=== PATIENT | female | born 1930 | race Caucasian/White ===

== ENCOUNTER 2019-02-27 20:20 | Emergency (ER) | payer OTHER, BC ==
[~2019-02-27] VITALS: Ht 157.5 cm; Wt 96.6 kg
[2019-02-27 20:20] VITALS: BP_SYST 126
--- NOTE | 2019-02-27 20:21 | NUR ---
Pt BIBA / from facility, with family present, to ED C/O having UTI and abnormal urine labs for 1 day. No other complaints and or injuries noted. VSS no s/s of acute distress. Resting on gurney with rails up
--- NOTE | 2019-02-27 21:47 | NUR ---
Patient to ER bed 6 to gown for evaluation. Side rails up. Report given to Helder BAUTISTA.
--- NOTE | 2019-02-27 21:53 | NUR ---
Dr. Chatterjee bedside for Pt eval
[2019-02-27 22:11] LABS: BILIRUBIN,URINE NEGATIVE (NEGATIVE); BLOOD, URINE NEGATIVE (NEGATIVE); CLARITY/URINE CLEAR (CLEAR); COLOR,URINE YELLOW (YELLOW); GLUCOSE,URINE NEGATIVE (NEGATIVE); KETONES,URINE NEGATIVE (NEGATIVE); LEUKOCYTE ESTERASE ,URINE TRACE (NEGATIVE); NITRITE, URINE POSITIVE (NEGATIVE); PH,URINE 5.5 (5.0-8.0); PROTEIN URINE NEGATIVE (NEGATIVE); UROBILINOGEN,URINE 0.2 (0.2-1.0)
--- NOTE | 2019-02-27 22:12 | NUR ---
Lab at bedside for blood draw, well tolerated
[2019-02-27 22:19] LABS: RBC,URINE 0-3 /HPF (0-3)
[2019-02-27 22:20] LABS: BACTERIA,URINE MANY /HPF (None Seen)
[2019-02-27 22:28] LABS: BASOPHILS # (AUTO) 0.1 K/uL (0.0-0.2); BASOPHILS % (AUTO) 1.2 % (0.0-2.0); EOSINOPHILS # (AUTO) 0.5 K/uL (0.0-0.4); EOSINOPHILS % (AUTO) 5.3 % (0.0-4.0); HEMOGLOBIN 12.7 g/dL (12.0-16.0); LYMPHOCYTES # (AUTO) 3.1 K/uL (1.0-5.5); MEAN CORPUSCULAR HEMOGLOBIN 30 pg (27-31); MEAN CORPUSCULAR HGB CONC 33 % (32-36); MEAN CORPUSCULAR VOLUME 91 fL (79.0-98.0); MONOCYTES # (AUTO) 0.6 K/uL (0.0-1.0); MONOCYTES % (AUTO) 7.2 % (1.7-9.3); NEUTROPHILS # (AUTO) 4.6 K/uL (1.8-7.7); NEUTROPHILS % (AUTO) 51.3 % (40.0-70.0); PLATELET COUNT (AUTO) 290 K/uL (130-430); RED BLOOD CELL COUNT(AUTO) 4.28 MIL/uL (4.2-6.2); RED CELL DISTRIBUTION WIDTH 17.2 % (9.0-15.0); WHITE BLOOD COUNT (AUTO) 8.9 K/uL (4.8-10.8)
[2019-02-27 22:34] LABS: ANION GAP 9 (5-15); CALCIUM 9.3 mg/dL (8.4-11.0); CHLORIDE 107 mmol/L (98-107); CREATININE 1.18 mg/dL (0.55-1.30); GLUCOSE 92 mg/dL (70-99); POTASSIUM 4.2 mmol/L (3.5-5.1); SODIUM SERUM 141 mmol/L (136-145); UREA NITROGEN, BLOOD 30 mg/dL (8-21)
[2019-02-27 22:40] LABS: ALANINE AMINOTRANSFERASE 22 U/L (12-78); ALBUMIN 3.4 g/dL (3.4-4.8); ASPARTATE AMINOTRANSFERASE 31 U/L (10-37); TOTAL BILIRUBIN 0.3 mg/dL (0.0-1.0)
--- NOTE | 2019-02-27 23:10 | NUR ---
VSS no s/s of acute distress. Resting on gurney with rails up
[2019-02-27] MEDS ORDERED: cefTRIAXone 1 GM VIAL IM ONE (23:15)
--- NOTE | 2019-02-28 00:05 | NUR ---
Family bedside while Pt's VSS no s/s of acute distress. Resting on gurney with rails up
[2019-02-28 01:20] VITALS: BP_SYST 126
--- NOTE | 2019-02-28 01:20 | NUR ---
Patient given written and verbal discharge instructions and verbalizes understanding. ER MD discussed with patient the results and treatment provided. Patient in stable condition. ID arm band removed. Rx of Keflex given. Patient educated on pain management and to follow up with PMD. Pain Scale 0/10 Opportunity for questions provided and answered. Medication side effect fact sheet provided.
== END 2019-02-28 01:20 | disposition home or self-care (01) ==
LOC: SED 20:20
DX: N39.0 Urinary tract infection, site not specified (principal)
CPT/HCPCS: 36415; 80053; 81000; 85025; 87086; 96372; 99283; J0696

== ENCOUNTER 2019-03-05 14:13 | Emergency (ER) | payer OTHER, BC ==
[~2019-03-05] VITALS: Ht 167.6 cm; Wt 136.1 kg
[2019-03-05 14:13] VITALS: BP_SYST 121
--- NOTE | 2019-03-05 14:13 | NUR ---
BROUGHT IN BY [facility], PLACED IN BED #4 AND TRIAGED. REPORT GIVEN TO YANI
--- NOTE | 2019-03-05 14:30 | NUR ---
ER at bedside examining patient.
--- NOTE | 2019-03-05 14:40 | NUR ---
Patient presented to ER with c/o alteration in mentation. Patient a resident of [facility] via wheelchair with daughter. Patient was observed pulling other residents out of bed, wandering in other areas of facility, and attempting to get out of wheelchair, and removed IV from hand. Patient confused, ski8n pink, respirations equal bilat, no visable abrasions.
[2019-03-05 15:28] LABS: BASOPHILS # (AUTO) 0.1 K/uL (0.0-0.2); BASOPHILS % (AUTO) 1.1 % (0.0-2.0); EOSINOPHILS # (AUTO) 0.3 K/uL (0.0-0.4); EOSINOPHILS % (AUTO) 4.3 % (0.0-4.0); HEMATOCRIT 39.7 % (36-48); HEMOGLOBIN 12.6 g/dL (12.0-16.0); LYMPHOCYTES # (AUTO) 2.3 K/uL (1.0-5.5); LYMPHOCYTES % (AUTO) 29.8 % (20.5-51.5); MEAN CORPUSCULAR HEMOGLOBIN 29 pg (27-31); MEAN CORPUSCULAR HGB CONC 32 % (32-36); MEAN CORPUSCULAR VOLUME 92 fL (79.0-98.0); MONOCYTES # (AUTO) 0.6 K/uL (0.0-1.0); MONOCYTES % (AUTO) 7.7 % (1.7-9.3); NEUTROPHILS # (AUTO) 4.5 K/uL (1.8-7.7); NEUTROPHILS % (AUTO) 57.1 % (40.0-70.0); PLATELET COUNT (AUTO) 293 K/uL (130-430); RED BLOOD CELL COUNT(AUTO) 4.31 MIL/uL (4.2-6.2); RED CELL DISTRIBUTION WIDTH 17.4 % (9.0-15.0); WHITE BLOOD COUNT (AUTO) 7.9 K/uL (4.8-10.8)
[2019-03-05 15:34] LABS: ANION GAP 5 (5-15); CALCIUM 9.6 mg/dL (8.4-11.0); CHLORIDE 109 mmol/L (98-107); CREATININE 1.04 mg/dL (0.55-1.30); GLUCOSE 104 mg/dL (70-99); POTASSIUM 4.8 mmol/L (3.5-5.1); SODIUM SERUM 140 mmol/L (136-145); UREA NITROGEN, BLOOD 31 mg/dL (8-21)
[2019-03-05 15:37] LABS: PROTHROMBIN TIME 10.5 SECS (9.5-12.5)
[2019-03-05 15:49] LABS: ALANINE AMINOTRANSFERASE 12 U/L (12-78); ALBUMIN 3.6 g/dL (3.4-4.8); ASPARTATE AMINOTRANSFERASE 28 U/L (10-37); TOTAL BILIRUBIN 0.2 mg/dL (0.0-1.0)
[2019-03-05] MEDS ORDERED: ALPRAZolam 0.25 MG TABLET PO ONE ×2 (17:00→19:15)
--- NOTE | 2019-03-05 17:35 | NUR ---
Patient assisted to Bathroom via wheel chair
[2019-03-05] MEDS ORDERED: ONDANSETRON 4 MG ODT TAB PO ONE (18:15)
[2019-03-05] MEDS ORDERED: HYDROcodone/ACETAMIN 10-325 MG TAB PO ONE (18:15)
[2019-03-05] MEDS ORDERED: IBUPROFEN 800 MG TABLET PO ONE (18:15)
--- NOTE | 2019-03-05 18:15 | NUR ---
Patient awake , family at bedside. Patient talking with family, asking to leave.
--- NOTE | 2019-03-05 19:42 | NUR ---
Patient resting comfortably in bed.
[2019-03-05 21:15] VITALS: BP_SYST 121
--- NOTE | 2019-03-05 21:15 | NUR ---
Patient's grandaughter given written and verbal discharge instructions and verbalizes understanding. ER discussed with patient's grandaughter the results and treatment provided. Patient in stable condition. ID arm band removed. No Rx given. Patient's grandaughter educated on pain management and to follow up with PMD. Pain Scale 0/10. Opportunity for questions provided and answered.
--- NOTE | 2019-03-05 21:18 | NUR ---
Awaiting transport to have patient transported back to facility.
--- NOTE | 2019-03-05 23:06 | NUR ---
Spoke to Rajni at [facility] to give report on the patient.
--- NOTE | 2019-03-05 23:34 | NUR ---
[facility] at bedside to transport patient back to facility.
== END 2019-03-05 23:34 ==
LOC: SED 14:13
DX: R45.1 Restlessness and agitation (principal); F03.90 Unspecified dementia, unspecified severity, without behavioral disturbance, psychotic disturbance, mood disturbance, and anxiety
CPT/HCPCS: 36415; 71045; 80053; 81002; 83605; 84484; 85025; 85610; 85730; 93005; 99285; Q0162

== ENCOUNTER 2019-03-10 14:30 | Inpatient (IN) | payer OTHER, BC ==
[~2019-03-10] VITALS: Ht 160 cm; Wt 93.0 kg
[2019-03-10] MEDS ORDERED: CEPH-568 PO (17:26)
[2019-03-10] MEDS ORDERED: CYAN250014 PO (17:26)
[2019-03-10] MEDS ORDERED: DONE10TA44 PO (17:26)
[2019-03-10] MEDS ORDERED: MOM PO (17:26)
[2019-03-10] MEDS ORDERED: MEMA10TA PO (17:26)
[2019-03-10] MEDS ORDERED: ACET-2165 PO (17:26)
[2019-03-10] MEDS ORDERED: QUET50TA PO (17:26)
[2019-03-10] MEDS ORDERED: PROP10DR2 RIGHT EYE (17:26)
[2019-03-10] MEDS ORDERED: BISA10SU61 RC (17:26)
[2019-03-10] MEDS ORDERED: LORA-258 PO ×2 (17:26)
[2019-03-10] MEDS ORDERED: LISI10TA5 PO (17:26)
[2019-03-10] MEDS ORDERED: MELA3TAB PO (17:26)
[2019-03-10] MEDS ORDERED: DEXT30DR6 EACH EYE (17:26)
[2019-03-10] MEDS ORDERED: PROP10TA10 PO (17:26)
[2019-03-10 17:54] VITALS: BP_SYST 112
[2019-03-10 18:19] LABS: BASOPHILS # (AUTO) 0.1 K/uL (0.0-0.2); EOSINOPHILS # (AUTO) 0.4 K/uL (0.0-0.4); HEMATOCRIT 40.5 % (36-48); LYMPHOCYTES # (AUTO) 2.6 K/uL (1.0-5.5); LYMPHOCYTES % (AUTO) 35.2 % (20.5-51.5); MEAN CORPUSCULAR HEMOGLOBIN 29 pg (27-31); MEAN CORPUSCULAR HGB CONC 32 % (32-36); MEAN CORPUSCULAR VOLUME 92 fL (79.0-98.0); MONOCYTES # (AUTO) 0.6 K/uL (0.0-1.0); MONOCYTES % (AUTO) 8.2 % (1.7-9.3); NEUTROPHILS # (AUTO) 3.7 K/uL (1.8-7.7); NEUTROPHILS % (AUTO) 50.6 % (40.0-70.0); PLATELET COUNT (AUTO) 304 K/uL (130-430); RED BLOOD CELL COUNT(AUTO) 4.42 MIL/uL (4.2-6.2); RED CELL DISTRIBUTION WIDTH 17.7 % (9.0-15.0); WHITE BLOOD COUNT (AUTO) 7.3 K/uL (4.8-10.8)
[2019-03-10 18:20] LABS: ANION GAP 3 (5-15); CALCIUM 9.7 mg/dL (8.4-11.0); CHLORIDE 108 mmol/L (98-107); CREATININE 1.13 mg/dL (0.55-1.30); GLUCOSE 103 mg/dL (70-99); POTASSIUM 4.4 mmol/L (3.5-5.1); SODIUM SERUM 138 mmol/L (136-145); UREA NITROGEN, BLOOD 27 mg/dL (8-21)
[2019-03-10 18:25] LABS: ALANINE AMINOTRANSFERASE 12 U/L (12-78); ALBUMIN 3.7 g/dL (3.4-4.8); ASPARTATE AMINOTRANSFERASE 29 U/L (10-37); TOTAL BILIRUBIN 0.3 mg/dL (0.0-1.0)
[2019-03-10] MEDS ORDERED: ACETAMINOPHEN 325 MG TABLET PO SCH (19:45)
[2019-03-10] MEDS ORDERED: LISINOPRIL 10 MG TABLET (PRINIVIL) PO ONE (19:45)
[2019-03-10] MEDS ORDERED: BISACODYL 10 MG/SUPPOSITORY RC SCH (19:45)
[2019-03-10 20:10] VITALS: BP_SYST 133
[2019-03-10] MEDS: MEMANTINE HCL 5 MG TABLET PO SCH (20:59)
[2019-03-10] MEDS: QUEtiapine FUMARATE 25 MG TABLET PO SCH (20:59)
[2019-03-10] MEDS: DONEPEZIL HCL 5 MG TABLET (ARICEPT) PO SCH (21:00)
[2019-03-10] MEDS: LORazepam 1 MG TABLET PO SCH (21:00)
[2019-03-10] MEDS: PROPRANOLOL HCL 10 MG TABLET (INDERAL) PO SCH (21:01)
[2019-03-10] MEDS ORDERED: cefTRIAXone 1 GM IVPB PREMIX 50 ML IV ONE (21:12)
[2019-03-10 21:50] LABS: BILIRUBIN,URINE NEGATIVE (NEGATIVE); BLOOD, URINE NEGATIVE (NEGATIVE); CLARITY/URINE CLEAR (CLEAR); COLOR,URINE YELLOW (YELLOW); GLUCOSE,URINE NEGATIVE (NEGATIVE); KETONES,URINE NEGATIVE (NEGATIVE); LEUKOCYTE ESTERASE ,URINE TRACE (NEGATIVE); NITRITE, URINE NEGATIVE (NEGATIVE); PROTEIN URINE NEGATIVE (NEGATIVE); UROBILINOGEN,URINE 0.2 (0.2-1.0)
[2019-03-10] MEDS ORDERED: DIPHENHYDRAMINE INJ 50 MG/ML VIAL ONE (21:59)
[2019-03-10] MEDS ORDERED: DIPHENHYDRAMINE INJ 50 MG/ML VIAL IVP ONE (22:00)
[2019-03-10 22:27] LABS: BACTERIA,URINE FEW /HPF (None Seen); MUCUS,URINE None Seen /LPF (None Seen); RBC,URINE 0-3 /HPF (0-3)
[2019-03-10] MEDS: cefTRIAXone 1 GM IVPB PREMIX 50 ML IV SCH (22:40)
[2019-03-10] MEDS ORDERED: ALPRAZolam 0.25 MG TABLET PO ONE (23:00)
[2019-03-10] MEDS ORDERED: ALPRAZolam 0.25 MG TABLET ONE (23:10)
[2019-03-11 01:04] VITALS: BP_SYST 121
[2019-03-11] MEDS: LISINOPRIL 10 MG TABLET (PRINIVIL) PO SCH ×2 (08:57→20:35)
[2019-03-11] MEDS: PROPRANOLOL HCL 10 MG TABLET (INDERAL) PO SCH ×3 (09:02→20:34)
[2019-03-11] MEDS: MEMANTINE HCL 5 MG TABLET PO SCH ×2 (09:02→20:33)
[2019-03-11] MEDS: LORazepam 1 MG TABLET PO SCH ×2 (09:03→20:35)
[2019-03-11 10:18] VITALS: BP_SYST 122
[2019-03-11 11:20] VITALS: BP_SYST 133
[2019-03-11 15:09] VITALS: BP_SYST 117
[2019-03-11] MEDS ORDERED: LORazepam 2 MG/ML VIAL IVP ONE (17:45)
[2019-03-11] MEDS ORDERED: LORazepam 2 MG/ML VIAL ONE (17:51)
[2019-03-11] MEDS ORDERED: ALPRAZolam 0.25 MG TABLET PO ONE ×2 (18:45→23:15)
[2019-03-11 19:15] VITALS: BP_SYST 116
[2019-03-11] MEDS: QUEtiapine FUMARATE 25 MG TABLET PO SCH (20:33)
[2019-03-11] MEDS: DONEPEZIL HCL 5 MG TABLET (ARICEPT) PO SCH (20:34)
[2019-03-11] MEDS: cefTRIAXone 1 GM IVPB PREMIX 50 ML IV SCH (20:35)
[2019-03-11] MEDS ORDERED: ALPRAZolam 0.25 MG TABLET ONE ×2 (23:17→23:28)
[2019-03-11] MEDS ORDERED: DIPHENHYDRAMINE INJ 50 MG/ML VIAL IVP ONE (23:30)
[2019-03-11] MEDS ORDERED: DIPHENHYDRAMINE INJ 50 MG/ML VIAL ONE (23:43)
[2019-03-12] VITALS (7 sets, daily range): BP systolic 103–148
[2019-03-12] MEDS: MEMANTINE HCL 5 MG TABLET PO SCH ×2 (08:10→20:27)
[2019-03-12] MEDS: PROPRANOLOL HCL 10 MG TABLET (INDERAL) PO SCH ×3 (08:11→20:27)
[2019-03-12] MEDS: LISINOPRIL 10 MG TABLET (PRINIVIL) PO SCH ×2 (08:11→20:28)
[2019-03-12] MEDS: LORazepam 1 MG TABLET PO SCH ×2 (08:12→20:25)
[2019-03-12] MEDS ORDERED: HALOPERIDOL LACTATE 5 MG/ML VIAL IM PRN (11:00)
[2019-03-12] MEDS: cefTRIAXone 1 GM IVPB PREMIX 50 ML IV SCH (20:24)
[2019-03-12] MEDS: DONEPEZIL HCL 5 MG TABLET (ARICEPT) PO SCH (20:25)
[2019-03-12] MEDS: QUEtiapine FUMARATE 25 MG TABLET PO SCH (20:28)
[2019-03-13 08:30] VITALS: BP_SYST 128
[2019-03-13] MEDS: MEMANTINE HCL 5 MG TABLET PO SCH (09:27)
[2019-03-13] MEDS: PROPRANOLOL HCL 10 MG TABLET (INDERAL) PO SCH (09:28)
[2019-03-13] MEDS: LORazepam 1 MG TABLET PO SCH (09:28)
[2019-03-13] MEDS: LISINOPRIL 10 MG TABLET (PRINIVIL) PO SCH (09:29)
[2019-03-13 10:51] VITALS: BP_SYST 114
== END 2019-03-13 15:22 | DRG 690 ==
LOC: UNDOADMIN 15:02 → SMU 15:02
PROVIDERS: ADMIT Internal Medicine Hospice and Palliative Medicine; ATTEND Internal Medicine Hospice and Palliative Medicine
DX: N39.0 Urinary tract infection, site not specified (principal); F03.91 Unspecified dementia, unspecified severity, with behavioral disturbance; I10 Essential (primary) hypertension; Z91.14 Patient's other noncompliance with medication regimen; Z91.19 Patient's noncompliance with other medical treatment and regimen
CPT/HCPCS: 36415; 80053; 81000-TC; 85025; 87081; 87086; J0696; J1200; J1630; J2060; J7050

== ENCOUNTER 2019-05-11 09:41 | Inpatient (IN) | payer OTHER, BC ==
[~2019-05-11] VITALS: Ht 172.7 cm; Wt 85.7 kg
[~2019-05-11 09:41] MED LIST: ACET-2165 PO; BISA10SU61 RC; CYAN250014 PO; DEXT30DR6 EACH EYE; DONE10TA44 PO; LISI10TA5 PO; LORA-258 PO; MELA3TAB64 PO; MEMA10TA PO; MOM PO; PROP10DR2 RIGHT EYE; PROP10TA10 PO; QUET50TA PO
--- NOTE | 2019-05-11 09:46 | NUR ---
Arrived via BLS ambulance with compliant of increased confusion and agititation. SNF statff was concerned as the patient has responded in this manner to UTI in the past. Patient to ER bed 4 to gown for evaluation. Side rails up. Report given to Marek BAUTISTA.
[2019-05-11 09:48] VITALS: BP_SYST 122
--- NOTE | 2019-05-11 09:50 | NUR ---
Patient BIBA from [place] c/o increased confusion and agitation. Received report via phone from Kira BAUTISTA. Per report, patient has history of HTN, dementia, UTI, and psychosis. Patient is A/O x 2. Respirations even and unlabored, skin warm/pink/dry, no signs or symptoms of acute distress noted.
--- NOTE | 2019-05-11 09:59 | NUR ---
ER Dr. Vallejo at bedside examining patient.
[2019-05-11] MEDS ORDERED: NA P133E41 RC (10:01)
--- NOTE | 2019-05-11 10:01 | NUR ---
Medication reconciliation completed based upon medication record provided by SNF.
--- NOTE | 2019-05-11 10:11 | NUR ---
Radiology at bedside.
[2019-05-11 11:01] LABS: BASOPHILS # (AUTO) 0.1 K/uL (0.0-0.2); EOSINOPHILS # (AUTO) 0.3 K/uL (0.0-0.4); EOSINOPHILS % (AUTO) 3.5 % (0.0-4.0); HEMATOCRIT 37.7 % (36-48); HEMOGLOBIN 12.3 g/dL (12.0-16.0); LYMPHOCYTES % (AUTO) 25.8 % (20.5-51.5); MEAN CORPUSCULAR HEMOGLOBIN 31 pg (27-31); MEAN CORPUSCULAR HGB CONC 33 % (32-36); MEAN CORPUSCULAR VOLUME 93 fL (79.0-98.0); MONOCYTES # (AUTO) 0.6 K/uL (0.0-1.0); MONOCYTES % (AUTO) 8.2 % (1.7-9.3); NEUTROPHILS # (AUTO) 4.7 K/uL (1.8-7.7); NEUTROPHILS % (AUTO) 61.5 % (40.0-70.0); PLATELET COUNT (AUTO) 290 K/uL (130-430); RED BLOOD CELL COUNT(AUTO) 4.06 MIL/uL (4.2-6.2); RED CELL DISTRIBUTION WIDTH 16.5 % (9.0-15.0); WHITE BLOOD COUNT (AUTO) 7.6 K/uL (4.8-10.8)
[2019-05-11 11:20] LABS: BILIRUBIN,URINE NEGATIVE (NEGATIVE); CLARITY/URINE HAZY (CLEAR); COLOR,URINE YELLOW (YELLOW); GLUCOSE,URINE NEGATIVE (NEGATIVE); KETONES,URINE NEGATIVE (NEGATIVE); LEUKOCYTE ESTERASE ,URINE 3+ (NEGATIVE); NITRITE, URINE NEGATIVE (NEGATIVE); PH,URINE 5.5 (5.0-8.0); PROTEIN URINE NEGATIVE (NEGATIVE); UROBILINOGEN,URINE 0.2 (0.2-1.0)
[2019-05-11 11:22] LABS: BLOOD, URINE TRACE (NEGATIVE)
[2019-05-11 11:39] LABS: BACTERIA,URINE MODERATE /HPF (None Seen); RBC,URINE 0-3 /HPF (0-3); WBC,URINE 20-50 /HPF (0-3)
[2019-05-11 11:40] LABS: MUCUS,URINE 1+ /LPF (None Seen)
[2019-05-11 11:40] LABS: ALANINE AMINOTRANSFERASE 25 U/L (12-78); ALBUMIN 3.3 g/dL (3.4-4.8); ANION GAP 2 (5-15); ASPARTATE AMINOTRANSFERASE 37 U/L (10-37); CHLORIDE 107 mmol/L (98-107); CREATININE 1.07 mg/dL (0.55-1.30); GLUCOSE 122 mg/dL (70-99); SODIUM SERUM 137 mmol/L (136-145); TOTAL BILIRUBIN 0.2 mg/dL (0.0-1.0); UREA NITROGEN, BLOOD 28 mg/dL (8-21)
[2019-05-11 11:43] LABS: POTASSIUM 4.4 mmol/L (3.5-5.1)
[2019-05-11 11:55] LABS: CALCIUM 9.4 mg/dL (8.4-11.0)
--- NOTE | 2019-05-11 12:13 | NUR ---
Patient's daughter Mariela at bedside. Updated daughter on patient status and plan of care. Education provided and all questions answered clearly.
[2019-05-11] MEDS ORDERED: cefTRIAXone 1 GM in D5W 50 ML IV ONE (12:15)
--- NOTE | 2019-05-11 13:40 | NUR ---
Patient will be admitted to care of Dr Galvan. Admitted to Medsurg unit. Will go to room 133A. Belongings list completed. Summary report printed. Report will be given at bedside.
--- NOTE | 2019-05-11 13:45 | NUR ---
ADMISSION NOTE Received patient from ER via gurney. Patient admitted with diagnosis of Agitation. Patient is awake, alert, oriented X 1. Patient oriented to hospital room, call light, toileting, pain management and safety-teach back done. Personal belongings checked and Belongings List documented. Call light within reach.
--- NOTE | 2019-05-11 13:45 | NUR ---
INITIAL NOTE: RECEIVED PATIENT FROM ER. PATIENT IS AWAKE AND ALERT X1. PATIENT IS TOLERATING OXYGEN AT ROOM AIR. NO SIGNS OF DISTRESS OR SHORTNESS OF BREATH NOTED. IV SITE IS PATENT WITH NO SIGNS OF INFILTRATION. PATIENT IN STABLE CONDITION. SAFETY, FALL ASPIRATION, AND CONTACT PRECAUTIONS ARE IN PLACE. BED LOCKED IN LOWEST POSITION WITH CALL LIGHT IN REACH. WILL CONTINUE TO MONITOR PATIENT FOR ANY CHANGES.
--- NOTE | 2019-05-11 14:03 | NUR ---
CONSULTATION PAGED REASON FOR CONSULTATION:AGITATION WAS CONSULT CALLED?Y PERSON WHO WAS NOTIFIED:BETTIE CONSULTING PHYSICIAN:CASANDRA ROCHE DIESEL RETROFIT DESIGNER SPECIALTY:PSYCH DIESEL RETROFIT DESIGNER PHONE NUMBER:[phone] ORDERING PHYSICIAN:JESSICA SANCHES
--- NOTE | 2019-05-11 14:18 | NUR ---
FACE SHEET FAXED TO OFFICE OF DR. RIJOAS
--- NOTE | 2019-05-11 14:20 | NUR ---
RN ROUNDS: PATIENT IS AWAKE AND ALERT x1. PATIENT IS GETTING ANXIOUS AND WANTS TO LEAVE. CLEANED PATIENT AND LAID HER BACK IN BED. PATIENT IN STABLE CONDITION. WILL CONTINUE TO MONITOR PATIENT FOR ANY CHANGES.
[2019-05-11] MEDS ORDERED: MILK OF MAGNESIA 30 ML UDC PO PRN (15:15)
[2019-05-11] MEDS ORDERED: ACETAMINOPHEN 325 MG TABLET PO PRN (15:15)
[2019-05-11] MEDS ORDERED: MEMANTINE HCL 5 MG TABLET PO ONE (15:45)
--- NOTE | 2019-05-11 15:48 | NUR ---
PAGED DR. LOERA PATIENT IS REFUSING TO STAY IN HER BED, REFUSING TO FOLLOW INSTRUCTIONS OF NURSING STAFF, PATIENT STATES, "I'M LEAVING, I WANT TO GO HOME," PAGED FOR ORDERS.
[2019-05-11] MEDS ORDERED: HALOPERIDOL LACTATE 5 MG/ML VIAL IM ONE (16:00)
[2019-05-11 16:15] VITALS: BP_SYST 140
--- NOTE | 2019-05-11 16:20 | NUR ---
RN ROUNDS: PATIENT IS GETTING COMBATIVE. PATIENT STATES "SHE IS GOING TO LEAVE". SECURITY IN THE ROOM WITH HER. PRN HALDOL GIVEN. WILL CONTINUE TO MONITOR PATIENT FOR ANY CHANGES.
[2019-05-11] MEDS ORDERED: LORazepam 2 MG/ML VIAL IVP PRN (17:15)
[2019-05-11] MEDS ORDERED: LORazepam 2 MG/ML VIAL ONE (17:44)
[2019-05-11] MEDS ORDERED: IVERMECTIN 3 MG TABLET PO ONE (17:45)
[2019-05-11] MEDS ORDERED: PERMETHRIN 5% 60 GM CREAM.GM. TP ONE (17:45)
--- NOTE | 2019-05-11 17:55 | NUR ---
PRN ATIVAN: PRN ATIVAN GIVEN. PATIENT VERY COMBATIVE STILL AND STATES "I AM LEAVING THIS PLACE, YOU CAN NOT KEEP ME HERE". WILL CONTINUE TO MONITOR PATIENT FOR ANY CHANGES.
--- NOTE | 2019-05-11 18:45 | NUR ---
CLOSING NOTES: PATIENT IS ASLEEP IN BED. SITTER AT BEDSIDE FOR SAFETY PRECAUTIONS. NO SIGNS OF DISTRESS OR SHORTNESS OF BREATH NOTED. IV SITE IS PATENT WITH NO SIGNS OF INFILTRATION. PATIENT IS TOLERATING OXYGEN AT ROOM AIR. PATIENT IN STABLE CONDITION. SAFETY, FALL, ASPIRATION, AND CONTACT PRECAUTIONS REMAINED IN PLACE THROUGHOUT THE SHIFT. BED LOCKED IN LOWEST POSITION WITH CALL LIGHT IN REACH. WILL ENDORSE PATIENT CARE TO ONCOMING BUILDING ENGINEER NURSE.
--- NOTE | 2019-05-11 19:20 | NUR ---
OPENING NOTE Received patient resting in bed eyes closed, no sign of distress, nonlabored breathing on room air. Direct observer is in room with patient. Bed is locked in lowest position, side rails up 3x, bed alarm on and call light w/in reach. IV is SL to LAC.
[2019-05-11 20:30] VITALS: BP_SYST 152
[2019-05-11] MEDS: MELATONIN 3 MG TABLET PO SCH (21:05)
[2019-05-11] MEDS: QUEtiapine FUMARATE 25 MG TABLET PO SCH (21:06)
[2019-05-11] MEDS: LISINOPRIL 10 MG TABLET (PRINIVIL) PO SCH (21:07)
[2019-05-11] MEDS: MEMANTINE HCL 5 MG TABLET PO SCH (21:07)
[2019-05-11] MEDS: DONEPEZIL HCL 5 MG TABLET (ARICEPT) PO SCH (21:07)
[2019-05-11] MEDS: PROPRANOLOL HCL 10 MG TABLET (INDERAL) PO SCH (21:08)
--- NOTE | 2019-05-11 21:10 | NUR ---
Medications Due medications given. Patient able to state name, she was confused though calm and cooperative. She swallowed medications without difficulty. Direct observer in room with patient.
--- NOTE | 2019-05-11 23:50 | NUR ---
Wet mount - pending I went to lab dept for wet mount slide and I was informed by Satish that I am not to send the sample now. He said according to his boss, [employer], I need to submit the wet mount sample in the morning at 0700. I let him know I leave at 0700 and will collect at 0500 and he said that is ok. Addendum: 05/12/19 at 0012 by Britta Lucas RN I also inquired about the solution for the wet mount slide and Satish said there is no solution.
--- NOTE | 2019-05-12 00:18 | NUR ---
RN rounds Patient is resting w/eyes closed. She is calm and no sign of distress. Direct observer is in room with patient.
[2019-05-12 01:10] VITALS: BP_SYST 152
--- NOTE | 2019-05-12 02:25 | NUR ---
RN rounds Patient is sleeping, no sign of distress. Symmetrical rise and fall of chest. Call light w/in reach. Direct observer in room with patient.
--- NOTE | 2019-05-12 04:10 | NUR ---
RN rounds Patient is resting w/ eyes closed. Symmetrical rise and fall of chest, no sign of distress. Direct observer in room with patient.
[2019-05-12] MEDS ORDERED: QUEtiapine FUMARATE 25 MG TABLET PO PRN (05:45)
--- NOTE | 2019-05-12 06:00 | NUR ---
Dr. Leo Bailey at bedside to evaluate patient.
--- NOTE | 2019-05-12 06:15 | NUR ---
Wet mount / Skin scrape Wet mount sample was obtained from left lower leg, using sterile scrape blade. Procedure explained to patient and she was cooperative and tolerated. Elimite cream was applied to body. Patient was provided with new linen, covered and resting in bed. Safety precautions maintained. Direct observer in room with patient.
--- NOTE | 2019-05-12 07:25 | NUR ---
Closing note Endorsed report to MICHELE Summers. Patient stable and calm, direct observer in room
--- NOTE | 2019-05-12 07:35 | NUR ---
AM ROUNDS: PATIENT RESTING IN THE BED. WITH SITTER AT THE BEDSIDE. CALM THIS TIME. BED LOCKED AT LOWEST POSITION. NO ACUTE DISTRESS. ON CONTACT ISOLATION PRECAUTION R/O SCABIES. AWAITS FOR WET MOUNT RESULTS PRELIM.
--- NOTE | 2019-05-12 07:57 | NUR ---
Wet mount Collected and submitted sample per [place] Manager Lighting instructions and supplies. Patient tolerated.
[2019-05-12 08:29] VITALS: BP_SYST 128
--- NOTE | 2019-05-12 08:52 | NUR ---
Nutrition Update Dirk Scale 18 noted. Pt admitted for agitation. Diet: 2 gm Na BMI: 28.7 kg/m2 RD to follow per nutrition care standards.
[2019-05-12] MEDS: LISINOPRIL 10 MG TABLET (PRINIVIL) PO SCH ×2 (10:13→22:10)
[2019-05-12] MEDS: MEMANTINE HCL 5 MG TABLET PO SCH ×2 (10:13→22:10)
[2019-05-12] MEDS: PROPRANOLOL HCL 10 MG TABLET (INDERAL) PO SCH ×3 (10:14→22:10)
--- NOTE | 2019-05-12 11:07 | NUR ---
DC CONTACT ISOLATION: PER DR. GRAY DC CONTACT ISOLATION ,FIRST WET MOUNT NEGATIVE.
--- NOTE | 2019-05-12 11:37 | NUR ---
FOLLOW UP CALLED FOR CONSULT DR. RIOJAS. S/W MADONNA ANSWERING SERVICE.
[2019-05-12] MEDS ORDERED: cefTRIAXone 1 GM in D5W 50 ML IV SCH (12:00)
[2019-05-12 12:07] VITALS: BP_SYST 106
--- NOTE | 2019-05-12 14:00 | NUR ---
RN ROUNDS: WITH SITTER AT THE BEDSIDE. CALM THIS TIME.
[2019-05-12 16:07] VITALS: BP_SYST 128
--- NOTE | 2019-05-12 17:40 | NUR ---
IV OUT: RE SITED IV AT RIGHT FOREARM USING G#22,IV ANTIBIOTIC GIVEN ORDERED.
--- NOTE | 2019-05-12 18:41 | NUR ---
DC SITTER: SPOKE WITH DR RIOJAS ,WITH ORDERS DC SITTER.
--- NOTE | 2019-05-12 19:30 | NUR ---
Pt was received sitting on the toilet and oriented to her name only. Pt's daughter and granddaughter are visiting pt. Pt's daughter is in the toilet with pt and has pt's IV saline lock with intact Angiocath in her hand. Pt's daughter stated pt pulled everything out. No acute distress noted and no c/o pain or discomfort.
[2019-05-12 20:00] VITALS: BP_SYST 139
--- NOTE | 2019-05-12 20:30 | NUR ---
Pt is confused and found roaming around outside her room. Pt was taken back to her room and reoriented to her room and surrounding. After pt got back in bed, pt was given her call light and bed alarm was armed. .
--- NOTE | 2019-05-12 21:45 | NUR ---
Pt was found getting out of her room with the bed alarm sounding. Pt was taken back to her bed and reoriented to her room and surrounding. Pt remains confused and disoriented. Pt was assisted to bed and instructed not not get out of bed without calling for assistance. Pt was given her call light and bed alarm was armed.
[2019-05-12] MEDS: QUEtiapine FUMARATE 25 MG TABLET PO SCH (22:11)
[2019-05-12] MEDS: MELATONIN 3 MG TABLET PO SCH (22:11)
[2019-05-12] MEDS: DONEPEZIL HCL 5 MG TABLET (ARICEPT) PO SCH (22:11)
--- NOTE | 2019-05-12 22:11 | NUR ---
Pt is awake and lying quietly in bed. Pt is reluctant to take her scheduled HS medications, but took them after she was convinced that she takes them every night. No difficulty swallowing noted. Call light is with pt and bed alarm is on. Bed is in the lowest and locked positions.
--- NOTE | 2019-05-12 23:30 | NUR ---
Pt was seen trying to get out of bed. Pt is very confused and disoriented. Pt is not combative or agitated. Pt stated she wanted to go outside. Pt was assisted to a wheelchair and placed in front of Nurses' Station for visibility.
[2019-05-13 00:39] VITALS: BP_SYST 152
--- NOTE | 2019-05-13 00:42 | NUR ---
While still sitting in a wheelchair in front of Nurse' Station and falling asleep, pt vomited some brownish liquid and pt was noted with generalized diaphoresis. Accucheck 114. Pt is responding verbally. O2 sat on room air 92%. Pt was taken back to her room and given hygiene, including gown change. Suction set up was done in pt's room. Pt was assisted back to her bed and O2 sat 95% on room air. Pt is responding verbally and stated she is okay. Call light given to pt and bed alarm is armed.
--- NOTE | 2019-05-13 01:45 | NUR ---
Pt is sleeping without any distress noted. Continuous pulse ox is showing O2 sat of 95%. No further vomiting noted. Call light is with pt and bed alarm is on.
--- NOTE | 2019-05-13 02:30 | NUR ---
Pt was seen trying to get out of bed. Pt remains confused and disoriented. Pt was assisted back to and reoriented to her room and surrounding. Call light is with pt and bed alarm is on. Addendum: 05/13/19 at 0242 by Shraddha Segovia RN Pt was assisted back to bed.
--- NOTE | 2019-05-13 04:15 | NUR ---
Pt c/o having lower abdominal pain after she voided approximately 220ml in BSC. Bladder scan done by charge nurse Trey with 77ml noted. Pt initially refused to get out of bed to urinate. She stated, "You will have to carry me." Fall and safety precautions are in place.
--- NOTE | 2019-05-13 05:30 | NUR ---
Pt kept on screaming continuously by asking, "Who is there?" No acute distress noted. Fall and safety precautions are in place.
--- NOTE | 2019-05-13 06:00 | NUR ---
Pt is still screaming, "Who is there?" Dr. Bailey is rounding. Fall and safety precautions are in place.
--- NOTE | 2019-05-13 07:30 | NUR ---
AM AROUNDS: PATIENT RESTING. BEDSIDE REPORT GIVEN BY NIGHT NURSE BRITTANY. CALL LIGHT WITH IN REACH. BED LOCKED AT LOWEST POSITION. NO ACUTE DISTRESS THIS TIME.
[2019-05-13 08:12] VITALS: BP_SYST 159
[2019-05-13] MEDS: PROPRANOLOL HCL 10 MG TABLET (INDERAL) PO SCH ×3 (08:48→21:31)
[2019-05-13] MEDS: MEMANTINE HCL 5 MG TABLET PO SCH ×2 (08:48→21:29)
--- NOTE | 2019-05-13 08:48 | NUR ---
Med Pass: Patient took her po meds well,with no problem.
[2019-05-13] MEDS: LISINOPRIL 10 MG TABLET (PRINIVIL) PO SCH ×2 (08:49→21:32)
--- NOTE | 2019-05-13 08:50 | NUR ---
IV ACCESS REFUSED: OFFERED IV ACCESS BUT PATIENT REFUSED EVEN AFTER EXPLAINING THE RATIONALE REGARDING IV ACCESS.WILL INFORM .
--- NOTE | 2019-05-13 09:00 | NUR ---
IV NOTES: DR LOERA WAS INFORMED REGARDING PATIENT REFUSING AN IV ACCESS.
[2019-05-13 11:49] VITALS: BP_SYST 156
--- NOTE | 2019-05-13 12:00 | NUR ---
ID ROUNDS: INFORMED DR TAVARES REGARDING PATIENT REFUSED IV ACCESS,IV ROCEPHIN WAS SWITCHED TO BATRIM DS ORDERED.
[2019-05-13] MEDS ORDERED: SULFAMETHOXAZOLE/TRIMETHOPR DS 1 TABLET PO ONE (12:45)
--- NOTE | 2019-05-13 13:11 | NUR ---
LUNCH: DAUGHTER ANDREAS CAME AND SITTED BEDSIDE THE PATIENT INFRONT OF THE STATION.PATIENT HAVING LUNCH. NO DISTRESS.
--- NOTE | 2019-05-13 13:20 | NUR ---
TRANSFERRED ROOM: PATIENT WAS TRANSFERRED TO ROOM [address]. PL[address] ON CONTACT ISOLATION FOR POSITIVE MRSA NARES.
--- NOTE | 2019-05-13 14:00 | NUR ---
MRSA NARES: PLACED ON CONTACT ISOLATION ORDERED BY DR GRAY. PATIENT'S DAUGHTER ANDREAS INFORMED AND SIGNED MRSA FORM. Addendum: 05/13/19 at 1731 by Nancy Finley RN ADDED NOTES:POSITIVE MRSA NARES.
[2019-05-13] MEDS ORDERED: HALOPERIDOL LACTATE 5 MG/ML VIAL IM ONE (15:45)
[2019-05-13] MEDS ORDERED: HALOPERIDOL LACTATE 5 MG/ML VIAL IM PRN ×2 (15:45→18:15)
[2019-05-13] MEDS ORDERED: LORazepam 2 MG/ML VIAL IM PRN (15:45)
[2019-05-13] MEDS ORDERED: DIPHENHYDRAMINE HCL 25 MG CAPSULE PO PRN (15:45)
--- NOTE | 2019-05-13 16:13 | NUR ---
ATIVAN IM/BENADRYL PO: ATIVAN 0.5MG IM GIVEN AT LEFT DELTOID PRN FOR AGITATION AND BENADRYL 25MG PO FOR ITCHING GIVEN.WITH NO PROBLEM.
--- NOTE | 2019-05-13 17:07 | NUR ---
PSYCHE PAGED: SPOKE WITH DR RIOJAS,PATIENT VERY AGITATED,GETTING OUT OF BED,PRN MEDS GIVEN FOR AGITATION STILL ANXIOUS,WITH ORDERS TO HAVE SITTER AT THE BEDSIDE. CHARGE NURSE MANINDER DAMON.
[2019-05-13 18:04] VITALS: BP_SYST 132
[2019-05-13] MEDS ORDERED: LORazepam 2 MG/ML VIAL IVP PRN (18:15)
--- NOTE | 2019-05-13 18:41 | NUR ---
END OF SHIFT: PATIENT CALMER THIS TIME. CALL LIGHT WITH IN REACH. BED LOCKED AT LOWEST POSITION. BED ALARM ON. WITH SITTER ASSIGNED FOR TONIGHT. PRACTICE GUIDELINES MET THROUGH OUT SHIFT.
--- NOTE | 2019-05-13 20:07 | NUR ---
RN REPORT-- RECIEVED REPORT FROM ETIENNE BAUTISTA, PATIET ALERT TO NAME WTH CONFUSION, RESPIRATIONS EVEN AND UNLABORED, ROOM AIR, SKIN INTACT BUT NOTED RASH O TRUNK OF BODY, PATIENT PICKING @ BEDSIDE CURTAINS, QUIET AND CALM, REQUESTED TO USE RESTROOM VOIDED CLEAR YELLOW URINE, UP IN CHAIR, QUIET AND CALM, SITTER @ BEDSIDE, VITAL SIGNS TAKEN, REFUSED EVENING MEAL, WILL CONTINUE TO ENCOURAGE PO FLUIDS.
[2019-05-13 20:15] VITALS: BP_SYST 122
[2019-05-13] MEDS: MUPIROCIN 2% TOPICAL OINTMENT 22 GM NS SCH (21:00)
[2019-05-13] MEDS: DONEPEZIL HCL 5 MG TABLET (ARICEPT) PO SCH (21:28)
[2019-05-13] MEDS: SULFAMETHOXAZOLE/TRIMETHOPR DS 1 TABLET PO SCH (21:29)
[2019-05-13] MEDS: QUEtiapine FUMARATE 25 MG TABLET PO SCH (21:30)
--- NOTE | 2019-05-13 22:00 | NUR ---
RESTING QUIETLY IN BED , CALM AND QUIET, TOLERATED PO MEDICATIONS WELL.
[2019-05-13] MEDS: MELATONIN 3 MG TABLET PO SCH (22:04)
[2019-05-14] VITALS: BP_SYST 124
--- NOTE | 2019-05-14 | NUR ---
PATIENT CONTINUES TO REST QUIETLY IN BED, ABLE TO TURN AND REPOSITION SELF AD SHERLYN, NO EPISODES OF AGITATION NOTED
--- NOTE | 2019-05-14 02:00 | NUR ---
RESTING QUIETLY IN BED WITH EYES CLOSED, EASILY AROUSED, NO CHANGE IN BEHAVIOR NOTED.
--- NOTE | 2019-05-14 02:00 | NUR ---
RESTING QUIETLY IN BED WITH EYES CLOSED, EASILY AROUSED, QUIET AND CALM, DENIES PAIN, NO S/S OF AGITATION, WILL CONTINUE TO MONITOR, SITTER @ BEDSIDE
--- NOTE | 2019-05-14 03:00 | NUR ---
AWAKE, AMBULATED TO RESTROOM WITH MINIMAL [id number] OF ASSISTANCE FROM GROUP FITNESS INSTRUCTOR VOIDED MODERATE AMOUNT OF CLEAR YELLOW URINE, SPONGE BATH AND GOOD PERICARE GIVEN WITH SOME HELP ROM PATIENT,PARTIAL LINEN CHG PROVIDED, ORAL CARE WAS SELF DONE, ASSISTED BACK TO BED WITHOUT INCIDENT, RESTNG QUIETLY IN BED WITH EYES CLOSED / EASILY AROUSED,DENIES PAIN, WILL CONTINUE TO MONITOR FOR ANY S/S OF AGITATION OR BEHAVIORAL CHANGES.
--- NOTE | 2019-05-14 04:00 | NUR ---
CONTINUES TO REST QUIETLY IN BED, NO BEHAVIOR CHANGES NOTED, EASILY AROUSED, DENIES PAIN, WILL CONTINUE TO MONITOR
--- NOTE | 2019-05-14 06:00 | NUR ---
REPORT GIVEN TO PHILIPP PETERSEN, PATIENT REMAINS CALM AND QUIET WHILE RESTING QUIETLY IN BED WITH EYES CLOSED, EASILY AROUSED
--- NOTE | 2019-05-14 07:15 | NUR ---
END OF SHFT REPORT-- SBAR REPORT GIVEN TO ATTILA BAUTISTA, SITTER @ BEDSIDE, PT. CONTNUES TO REST QUIETLY IN BED WITH EYES CLOSED, IN NO ACUTE RESP./CARDIAC DISTRESS.
--- NOTE | 2019-05-14 07:22 | NUR ---
OPENING NOTE Patient resting in the bed with eyes closed. No acute distress. Sitter at bedside. On contact isolation. Safety measure maintained. Bed locked in low position, side rails up, bed alarm on. Call light within reached. Will continue to monitor.
[2019-05-14 08:00] VITALS: BP_SYST 142
--- NOTE | 2019-05-14 09:12 | NUR ---
BREAKFAST Patient eating breakfast with sitter assisted. No s/s of aspiration noted. HOB elevated. Safety measure maintained. Call light within reached. Continue to monitor.
--- NOTE | 2019-05-14 10:15 | NUR ---
SEEN AND EXAMINED BY JESSICA LOPES WITH DISCHARGE ORDER RECEIVED.
[2019-05-14] MEDS: MEMANTINE HCL 5 MG TABLET PO SCH (10:28)
[2019-05-14] MEDS: PROPRANOLOL HCL 10 MG TABLET (INDERAL) PO SCH ×2 (10:29→15:00)
[2019-05-14] MEDS: LISINOPRIL 10 MG TABLET (PRINIVIL) PO SCH (10:29)
[2019-05-14] MEDS: SULFAMETHOXAZOLE/TRIMETHOPR DS 1 TABLET PO SCH (10:29)
[2019-05-14] MEDS: MUPIROCIN 2% TOPICAL OINTMENT 22 GM NS SCH (10:50)
--- NOTE | 2019-05-14 12:05 | NUR ---
LUNCH Sitter at bedside and assisted patient for eating lunch. Aspiration precaution maintained. Continue on contact isolation. safety measure maintained. Call light within reached. Continue to monitor.
[2019-05-14 13:18] VITALS: BP_SYST 136
--- NOTE | 2019-05-14 14:00 | NUR ---
RESTING Patient resting in the bed with eyes closed. No acute distress. Safety measure maintained. Call light within reached. Bed locked in low position, side rails up, bed alarm on. Call light within reached. Sitter at bedside. Continue to monitor.
--- NOTE | 2019-05-14 14:54 | NUR ---
PT, A RESIDENT OF [facility] IS ORDERED TO GO BACK TO THE FACILITY BY ATTENDING MD DR LOERA. FAXED THE H/P, F/S AND MEDLIST TO THE FACILITY AND WAS GIVEN RM 41 A. ARRANGED [facility] FOR TRANSPORT PER , KAROLINA TORIBIO (AUTH # [id number]) [employer] INSTALLER TIME IS 1745. SPOKE TO HAMLET
[2019-05-14 15:25] VITALS: BP_SYST 128
--- NOTE | 2019-05-14 15:27 | NUR ---
CALLED SHIRA WOLF AND REPORT GIVEN Called Shira Wolf, report given to MICHELE Sylvester. Patient will go to [address]. Per Higinio patient received flu shot on 04/08/19.
[2019-05-14 16:04] VITALS: BP_SYST 128
--- NOTE | 2019-05-14 17:55 | NUR ---
PT TRANSFERRED Report given to Higinio RN at 1527. Transfer packet with Transfer Orders and Medication Reconciliation form given to EMT with report. Exitcare provided. [facility] ID band removed, replaced with ID band with pt's name and . All belongings sent with patient. Patient left floor via gurney escorted by EMT in no distress.
[2019-05-14] MEDS ORDERED: QUEtiapine FUMARATE 25 MG TABLET PO SCH (18:00)
== END 2019-05-14 17:55 | DRG 690 ==
LOC: SED 09:41 → SMU 13:16
PROVIDERS: ADMIT Internal Medicine Hospice and Palliative Medicine; ATTEND Internal Medicine Hospice and Palliative Medicine
DX: N39.0 Urinary tract infection, site not specified (principal); F03.91 Unspecified dementia, unspecified severity, with behavioral disturbance; B86 Scabies; I10 Essential (primary) hypertension; R45.1 Restlessness and agitation; F29 Unspecified psychosis not due to a substance or known physiological condition; E66.9 Obesity, unspecified; R21 Rash and other nonspecific skin eruption; M19.90 Unspecified osteoarthritis, unspecified site; Z79.899 Other long term (current) drug therapy; Z87.440 Personal history of urinary (tract) infections; Z22.322 Carrier or suspected carrier of Methicillin resistant Staphylococcus aureus; Z68.28 Body mass index [BMI] 28.0-28.9, adult
CPT/HCPCS: 36415; 71045; 80053; 81000-TC; 82962; 83605; 84484; 85025; 87040-TC; 87081; 87086; 87210-TC; 93005; 96365; 99285; J0696; J1630; J2060; J7060; Q0163

== ENCOUNTER 2019-06-07 10:59 | Emergency (ER) | payer OTHER, BC ==
[~2019-06-07] VITALS: Ht 172.7 cm; Wt 79.4 kg
[~2019-06-07 10:59] MED LIST changes: +NA P133E41 RC
[2019-06-07 11:00] VITALS: BP_SYST 126
[2019-06-07 16:30] VITALS: BP_SYST 121
== END 2019-06-07 16:30 | disposition home or self-care (01) ==
LOC: SED 10:59
DX: S52.591A Other fractures of lower end of right radius, initial encounter for closed fracture (principal); S62.611A Displaced fracture of proximal phalanx of left index finger, initial encounter for closed fracture; S52.611A Displaced fracture of right ulna styloid process, initial encounter for closed fracture; S00.81XA Abrasion of other part of head, initial encounter; F03.90 Unspecified dementia, unspecified severity, without behavioral disturbance, psychotic disturbance, mood disturbance, and anxiety; Z79.899 Other long term (current) drug therapy; W19.XXXA Unspecified fall, initial encounter; Y93.89 Activity, other specified; Y92.89 Other specified places as the place of occurrence of the external cause; Y99.8 Other external cause status
CPT/HCPCS: 70450-TC; 99284

== ENCOUNTER 2019-10-03 00:56 | Emergency (ER) | payer OTHER, BC ==
[~2019-10-03] VITALS: Ht 162.6 cm; Wt 74.8 kg
[2019-10-03 01:08] VITALS: BP_SYST 137
--- NOTE | 2019-10-03 01:10 | NUR ---
Placed in room 05 . Placed on thermal spray operator, blood pressure machine and pulse oximeter. To gown for exam. Side rails up.
--- NOTE | 2019-10-03 01:12 | NUR ---
Pt AAOx2 presents to ED via BLS from [facility] for 3cm lac to crown of head s/p unwitnessed fall prior to arrival. Per staff, pt was found on floor s/p given Ativan before going to bed. Pt has hx of Dementia. Bleeding controlled. No other injuries/complaints per pt/noted. Will continue to monitor.
--- NOTE | 2019-10-03 01:26 | NUR ---
Spoke with pt daughter Mariela [phone] to update on pt status. Would like to be informed of any change in pt condition.
--- NOTE | 2019-10-03 02:40 | NUR ---
Pt assisted to bedside commode to urinate. Pt tolerated well.
--- NOTE | 2019-10-03 02:41 | NUR ---
Laceration site cleansed with NS. Pt tolerated well. Only 1 puncture wound found to crown. Bleeding controlled. Pt denies pain elsewhere. Denies KO.
--- NOTE | 2019-10-03 04:10 | NUR ---
Pt assisted with bed harris. Pt tolerated well.
--- NOTE | 2019-10-03 04:12 | NUR ---
Care endorsed to Sergei BAUTISTA
--- NOTE | 2019-10-03 04:30 | NUR ---
DAMEON Chatterjee at bedside examining patient.
--- NOTE | 2019-10-03 04:54 | NUR ---
[facility] called at this time to let know pt is going to be sent back.
--- NOTE | 2019-10-03 05:10 | NUR ---
Pt made aware that ER MD has medically cleared her to go back to [facility]. Pt is agreeable, will cont to monitor pt.
--- NOTE | 2019-10-03 05:16 | NUR ---
Patient given written and verbal discharge instructions and verbalizes understanding. ER MD Dr. Chatterjee discussed with patient the results and treatment provided. Patient in stable condition. ID arm band removed. Patient educated on pain management and to follow up with PMD. Pain Scale 0/10. Opportunity for questions provided and answered. Medication side effect fact sheet provided. Awaiting transfer back to [facility].
[2019-10-03 05:57] VITALS: BP_SYST 137
--- NOTE | 2019-10-03 05:57 | NUR ---
S ambulance here to pick pt up and bring back to [facility]. No signs of acute distress or discomfort noted.
== END 2019-10-03 05:57 | disposition home or self-care (01) ==
LOC: SED 00:56
DX: Z04.3 Encounter for examination and observation following other accident (principal); Z79.899 Other long term (current) drug therapy; W18.39XA Other fall on same level, initial encounter; Y93.89 Activity, other specified; Y92.89 Other specified places as the place of occurrence of the external cause; Y99.8 Other external cause status
CPT/HCPCS: 99283

== ENCOUNTER 2019-10-10 16:39 | Emergency (ER) | payer OTHER, BC ==
[~2019-10-10] VITALS: Ht 162.6 cm; Wt 79.4 kg
[2019-10-10] MEDS ORDERED: DIPH-TET-PERTUS Vaccine 0.5 ML VIAL (ADACEL) I.M. ONE (17:15)
--- NOTE | 2019-10-10 17:15 | NUR ---
PATIENT TO ER #4; HEAD DRESSING IN THE FIELD
--- NOTE | 2019-10-10 17:18 | NUR ---
ER at bedside examining patient.
[2019-10-10 17:24] VITALS: BP_SYST 151
--- NOTE | 2019-10-10 17:35 | NUR ---
Patient arrived via POV, patient was brought in by ambulance after mechanical fall. Patient states she slipped. PAtient has moderate pain and laceration above left eyebrow. Per report from EMS, patient has recently had difficulty ambulating. Patient fell outside of her senior care. Patient calm and cooperative. Will continue to follow up and monitor.
[2019-10-10] MEDS ORDERED: LIDOCAINE 1% 10 MG/ML, 20 ML MDV INJ ONE (17:45)
[2019-10-10 17:56] LABS: BASOPHILS # (AUTO) 0.1 K/uL (0.0-0.2); BASOPHILS % (AUTO) 0.8 % (0.0-2.0); EOSINOPHILS # (AUTO) 0.3 K/uL (0.0-0.4); EOSINOPHILS % (AUTO) 3.7 % (0.0-4.0); HEMATOCRIT 40.5 % (36-48); HEMOGLOBIN 13.1 g/dL (12.0-16.0); LYMPHOCYTES # (AUTO) 1.7 K/uL (1.0-5.5); MEAN CORPUSCULAR HEMOGLOBIN 30 pg (27-31); MEAN CORPUSCULAR HGB CONC 32 % (32-36); MEAN CORPUSCULAR VOLUME 92 fL (79.0-98.0); MONOCYTES # (AUTO) 0.7 K/uL (0.0-1.0); MONOCYTES % (AUTO) 8.1 % (1.7-9.3); NEUTROPHILS % (AUTO) 68.4 % (40.0-70.0); PLATELET COUNT (AUTO) 290 K/uL (130-430); RED CELL DISTRIBUTION WIDTH 15.7 % (9.0-15.0); WHITE BLOOD COUNT (AUTO) 8.7 K/uL (4.8-10.8)
[2019-10-10 18:04] LABS: ANION GAP 9 (5-15); CALCIUM 8.8 mg/dL (8.4-11.0); CHLORIDE 106 mmol/L (98-107); CREATININE 1.21 mg/dL (0.55-1.30); GLUCOSE 95 mg/dL (70-99); POTASSIUM 4.1 mmol/L (3.5-5.1); SODIUM SERUM 140 mmol/L (136-145); UREA NITROGEN, BLOOD 23 mg/dL (8-21)
[2019-10-10 18:10] LABS: ALANINE AMINOTRANSFERASE 13 U/L (12-78); ASPARTATE AMINOTRANSFERASE 30 U/L (10-37); TOTAL BILIRUBIN 0.5 mg/dL (0.0-1.0)
--- NOTE | 2019-10-10 18:10 | NUR ---
Patient is sutured by Fede Gamble, dressing applied and TDap given. Patient calm and cooperative. Will continue to follow up and monitor.
--- NOTE | 2019-10-10 19:10 | NUR ---
Endorsed care to MICHELE Arango.
--- NOTE | 2019-10-10 19:12 | NUR ---
Report received from MICHELE Devries. All care endorsed.
[2019-10-10 20:56] VITALS: BP_SYST 154
--- NOTE | 2019-10-10 20:56 | NUR ---
Patient given written and verbal discharge instructions and verbalizes understanding. ER MD discussed with patient the results and treatment provided. Patient in stable condition. ID arm band removed. Rx of Zofran given. Patient educated on pain management and to follow up with PMD. Pain Scale 0. Opportunity for questions provided and answered. Medication side effect fact sheet provided.
== END 2019-10-10 20:56 | disposition home or self-care (01) ==
LOC: SED 16:39
DX: S01.112A Laceration without foreign body of left eyelid and periocular area, initial encounter (principal); W01.198A Fall on same level from slipping, tripping and stumbling with subsequent striking against other object, initial encounter; Y93.01 Activity, walking, marching and hiking; Y92.89 Other specified places as the place of occurrence of the external cause; Y99.8 Other external cause status; I10 Essential (primary) hypertension; Z79.899 Other long term (current) drug therapy
CPT/HCPCS: 12013; 36415; 70450; 72125; 80053; 85025; 90471; 90715; 99285; J2001

== ENCOUNTER 2020-04-11 19:39 | Emergency (ER) | payer OTHER, BC ==
[~2020-04-11] VITALS: Ht 162.6 cm; Wt 79.4 kg
[2020-04-11 19:39] VITALS: BP_SYST 125
--- NOTE | 2020-04-11 19:39 | NUR ---
Placed in room 7 . Placed on electronic device monitor, blood pressure machine and pulse oximeter. To gown for exam. Side rails up.
--- NOTE | 2020-04-11 19:40 | NUR ---
BIB EMT FROM SNF FOR HEAD INJURY. PT HAS LARGE DRSG AND ABRASIONS TO FACE
--- NOTE | 2020-04-11 19:48 | NUR ---
COV IN TO ASSESS
[2020-04-11] MEDS ORDERED: HYDROcodone/ACETAMIN 5-325 MG TAB (NORCO/ VICODIN) PO ONE (20:00)
[2020-04-11] MEDS ORDERED: LIDOCAINE 1% 10 MG/ML, 20 ML MDV INJ ONE (20:00)
--- NOTE | 2020-04-11 20:00 | NUR ---
WOUND CARE, IRRIGATED, CLEANSED. TOLERATED WELL
--- NOTE | 2020-04-11 20:19 | NUR ---
OFF TO CT HEAD. PT ALERT, NO DISTRESS
[2020-04-11] MEDS ORDERED: PHENYTOIN SODIUM 100 MG/2 ML VIAL (DILANTIN) IVP ONE (20:30)
--- NOTE | 2020-04-11 20:36 | NUR ---
SPOKE WITH DAUGHTER ON PHONE, UPDATE PROVIDED
--- NOTE | 2020-04-11 20:45 | NUR ---
SUTURE REPAIR IN PROGRESS. PT TOLERATING WELL
--- NOTE | 2020-04-11 20:57 | NUR ---
Report received from Maykel BAUTISTA
--- NOTE | 2020-04-11 20:59 | NUR ---
Patient given a sandwich and juice. No complaints at this time.
[2020-04-11] MEDS ORDERED: BACITRACIN 1 GM OINT TP ONE ×2 (21:00→21:15)
[2020-04-11] MEDS ORDERED: DIPH-TET-PERTUS Vaccine 0.5 ML VIAL (ADACEL) I.M. ONE (21:15)
--- NOTE | 2020-04-11 21:21 | NUR ---
Chance Fox called, report given to Bree and made aware of care plan for patient during ER visit and all medications administered to patient. Bree did not ask any questions and stated she is not aware of last tetnus shot for patient. Daughter Mariela will be called to made aware patient will be transfered back to facility.
[2020-04-11 21:50] VITALS: BP_SYST 125
--- NOTE | 2020-04-11 21:50 | NUR ---
Patient given written and verbal discharge instructions and verbalizes understanding. ER MD discussed with patient the results and treatment provided. Patient in stable condition. ID arm band removed. Rx of Tylenol extra strength given. Patient educated on pain management and to follow up with PMD. Report given to MK from [facility] for questions provided and answered. Medication side effect fact sheet provided.
== END 2020-04-11 21:50 | disposition home or self-care (01) ==
LOC: SED 19:39
DX: S01.81XA Laceration without foreign body of other part of head, initial encounter (principal); S56.428A Laceration of extensor muscle, fascia and tendon of left little finger at forearm level, initial encounter; I10 Essential (primary) hypertension; Z79.899 Other long term (current) drug therapy; W05.0XXA Fall from non-moving wheelchair, initial encounter; Y93.89 Activity, other specified; Y92.89 Other specified places as the place of occurrence of the external cause; Y99.8 Other external cause status
CPT/HCPCS: 12013; 70450; 70486; 73130; 90471; 90715; 99285; J2001

== ENCOUNTER 2020-07-02 17:40 | Inpatient (IN) | payer OTHER, BC, SELFPAY ==
[~2020-07-02] VITALS: Ht 165.1 cm; Wt 78.2 kg
[~2020-07-02 17:40] MED LIST changes: -ACET-2165 PO; +ACET325T PO; +MELA3TAB41 PO; -MELA3TAB64 PO
[2020-07-02 17:42] VITALS: BP_SYST 102
[2020-07-02] MEDS ORDERED: NS 500 ML IV ONE (18:15)
[2020-07-02] MEDS ORDERED: LORazepam 2 MG/ML VIAL IVP ONE (18:45)
[2020-07-02 18:47] LABS: BASOPHILS # (AUTO) 0.1 K/uL (0.0-0.2); BASOPHILS % (AUTO) 1.3 % (0.0-2.0); EOSINOPHILS # (AUTO) 0.1 K/uL (0.0-0.4); EOSINOPHILS % (AUTO) 1.3 % (0.0-4.0); HEMATOCRIT 37.4 % (36-48); HEMOGLOBIN 12.1 g/dL (12.0-16.0); LYMPHOCYTES # (AUTO) 0.7 K/uL (1.0-5.5); LYMPHOCYTES % (AUTO) 12.6 % (20.5-51.5); MEAN CORPUSCULAR HEMOGLOBIN 29 pg (27-31); MEAN CORPUSCULAR HGB CONC 32 % (32-36); MEAN CORPUSCULAR VOLUME 91 fL (79.0-98.0); MONOCYTES # (AUTO) 0.8 K/uL (0.0-1.0); MONOCYTES % (AUTO) 14.7 % (1.7-9.3); NEUTROPHILS # (AUTO) 3.9 K/uL (1.8-7.7); NEUTROPHILS % (AUTO) 70.1 % (40.0-70.0); PLATELET COUNT (AUTO) 256 K/uL (130-430); RED BLOOD CELL COUNT(AUTO) 4.12 MIL/uL (4.2-6.2); RED CELL DISTRIBUTION WIDTH 16.8 % (9.0-15.0); WHITE BLOOD COUNT (AUTO) 5.5 K/uL (4.8-10.8)
[2020-07-02 19:00] LABS: ANION GAP 5 (5-15); CALCIUM 8.5 mg/dL (8.4-11.0); CHLORIDE 105 mmol/L (98-107); CREATININE 1.16 mg/dL (0.55-1.30); GLUCOSE 93 mg/dL (70-99); POTASSIUM 4.9 mmol/L (3.5-5.1); SODIUM SERUM 137 mmol/L (136-145); UREA NITROGEN, BLOOD 27 mg/dL (8-21)
[2020-07-02 19:04] LABS: INR 1.1 (0.8-1.2); PROTHROMBIN TIME 11.1 SECS (9.5-12.5)
[2020-07-02 19:07] LABS: ALANINE AMINOTRANSFERASE 27 U/L (12-78); ALBUMIN 3.5 g/dL (3.4-4.8); ASPARTATE AMINOTRANSFERASE 33 U/L (10-37); TOTAL BILIRUBIN 0.4 mg/dL (0.0-1.0)
[2020-07-02 19:15] LABS: BILIRUBIN,URINE NEGATIVE (NEGATIVE); BLOOD, URINE NEGATIVE (NEGATIVE); CLARITY/URINE CLEAR (CLEAR); COLOR,URINE YELLOW (YELLOW); GLUCOSE,URINE NEGATIVE (NEGATIVE); KETONES,URINE TRACE (NEGATIVE); LEUKOCYTE ESTERASE ,URINE TRACE (NEGATIVE); NITRITE, URINE POSITIVE (NEGATIVE); PH,URINE 5.5 (5.0-8.0); PROTEIN URINE NEGATIVE (NEGATIVE); UROBILINOGEN,URINE 0.2 (0.2-1.0)
[2020-07-02 19:22] LABS: BACTERIA,URINE MODERATE /HPF (None Seen); MUCUS,URINE None Seen /LPF (None Seen); RBC,URINE 0-3 /HPF (0-3)
[2020-07-02] MEDS ORDERED: cefTRIAXone 1 GM IVPB PREMIX 50 ML IV ONE ×2 (19:40→19:45)
[2020-07-02] MEDS ORDERED: ONDA4TAB5 PO (20:54)
[2020-07-02] MEDS ORDERED: ISON300T19 PO (20:54)
[2020-07-02] MEDS ORDERED: LISI-600 PO (20:54)
[2020-07-02] MEDS ORDERED: ACET-73 PO (20:54)
[2020-07-02] MEDS ORDERED: LORA-258 PO (20:54)
[2020-07-02] MEDS ORDERED: RISP0.5T5 PO (20:54)
[2020-07-02] MEDS ORDERED: ACETAMINOPHEN 325 MG TABLET PO PRN (21:15)
[2020-07-03] MEDS ORDERED: ACETAMINOPHEN 500 MG TABLET PO ONE (00:45)
[2020-07-03] MEDS: KCL 20 mEq in D5/0.45NS 1000mL 1,000 ML IV SCH ×3 (00:51→23:55)
[2020-07-03] MEDS ORDERED: CEFEPIME 1 GM/VIAL (MAXIPIME) ONE (11:19)
[2020-07-03] MEDS: CEFEPIME 1 GM in D5W 50 ML IV SCH (12:58)
[2020-07-03 18:35] VITALS: BP_SYST 125
[2020-07-03 20:00] VITALS: BP_SYST 135
[2020-07-03 20:29] VITALS: BP_SYST 135
[2020-07-03] MEDS ORDERED: PEG 400/HYPROMELLOSE/GLYCERIN 15 ML DROPS OP PRN (22:15)
[2020-07-03] MEDS ORDERED: ENOXAPARIN SODIUM 30 MG/0.3 ML SYRINGE SUBCUT SCH (22:25)
[2020-07-03] MEDS ORDERED: ONDANSETRON HCL 4 MG/2 ML VIAL IVP PRN (22:30)
[2020-07-03] MEDS ORDERED: ENOXAPARIN SODIUM 30 MG/0.3 ML SYRINGE ONE (22:58)
[2020-07-03] MEDS: ENOXAPARIN SODIUM 30 MG/0.3 ML SYRINGE SUBCUT SCH (23:05)
[2020-07-04] VITALS: BP_SYST 114
[2020-07-04 08:00] VITALS: BP_SYST 132
[2020-07-04] MEDS ORDERED: PEG 400/HYPROMELLOSE/GLYCERIN 15 ML DROPS EACH EYE PRN (08:00)
[2020-07-04] MEDS: PROPRANOLOL HCL 10 MG TABLET (INDERAL) PO SCH ×3 (09:00→21:00)
[2020-07-04] MEDS: CEFEPIME 1 GM in D5W 50 ML IV SCH (09:30)
[2020-07-04] MEDS: ISONIAZID 300 MG TABLET PO SCH (09:40)
[2020-07-04] MEDS: CYANOCOBALAMIN 1000 mCg TABLET PO SCH (09:40)
[2020-07-04] MEDS: lisinopriL 20 MG TABLET PO SCH (09:40)
[2020-07-04] MEDS: MEMANTINE HCL 5 MG TABLET PO SCH ×2 (09:40→21:00)
[2020-07-04] MEDS ORDERED: AZITHROMYCIN 500 MG in NS 250 ML IV SCH (11:00)
[2020-07-04] MEDS ORDERED: DEXAMETHASONE SOD PHOSPHATE 10 MG/ML VIAL IVP SCH (11:00)
[2020-07-04 13:00] VITALS: BP_SYST 137
[2020-07-04] MEDS: KCL 20 mEq in D5/0.45NS 1000mL 1,000 ML IV SCH (13:15)
[2020-07-04 15:21] VITALS: BP_SYST 148
[2020-07-04 20:00] VITALS: BP_SYST 137
[2020-07-04] MEDS: MELATONIN 3 MG TABLET PO SCH (21:00)
[2020-07-04] MEDS: DONEPEZIL HCL 5 MG TABLET (ARICEPT) PO SCH (21:00)
[2020-07-04] MEDS: QUEtiapine FUMARATE 25 MG TABLET PO SCH (21:00)
[2020-07-04] MEDS: ENOXAPARIN SODIUM 30 MG/0.3 ML SYRINGE SUBCUT SCH (21:00)
[2020-07-05] VITALS: BP_SYST 155
[2020-07-05] MEDS: LORazepam 1 MG TABLET PO PRN (01:42)
[2020-07-05] MEDS: KCL 20 mEq in D5/0.45NS 1000mL 1,000 ML IV SCH ×2 (02:35→14:50)
[2020-07-05 07:21] LABS: BASOPHILS % (AUTO) 0.2 % (0.0-2.0); HEMOGLOBIN 14.7 g/dL (12.0-16.0); LYMPHOCYTES % (AUTO) 25.5 % (20.5-51.5); MEAN CORPUSCULAR HEMOGLOBIN 29 pg (27-31); MEAN CORPUSCULAR HGB CONC 33 % (32-36); MEAN CORPUSCULAR VOLUME 90 fL (79.0-98.0); MONOCYTES # (AUTO) 0.5 K/uL (0.0-1.0); MONOCYTES % (AUTO) 12.7 % (1.7-9.3); NEUTROPHILS # (AUTO) 2.5 K/uL (1.8-7.7); NEUTROPHILS % (AUTO) 61.6 % (40.0-70.0); PLATELET COUNT (AUTO) 258 K/uL (130-430); RED BLOOD CELL COUNT(AUTO) 4.99 MIL/uL (4.2-6.2); RED CELL DISTRIBUTION WIDTH 16.8 % (9.0-15.0); WHITE BLOOD COUNT (AUTO) 4.1 K/uL (4.8-10.8)
[2020-07-05 07:43] LABS: ANION GAP 7 (5-15); CALCIUM 8.9 mg/dL (8.4-11.0); CHLORIDE 105 mmol/L (98-107); CREATININE 0.88 mg/dL (0.55-1.30); GLUCOSE 90 mg/dL (70-99); PHOSPHORUS 3.3 mg/dL (2.7-4.5); POTASSIUM 4.4 mmol/L (3.5-5.1); SODIUM SERUM 140 mmol/L (136-145); UREA NITROGEN, BLOOD 14 mg/dL (8-21)
[2020-07-05 08:40] VITALS: BP_SYST 155
[2020-07-05] MEDS: MEMANTINE HCL 5 MG TABLET PO SCH ×2 (08:40→20:38)
[2020-07-05] MEDS: lisinopriL 20 MG TABLET PO SCH (08:40)
[2020-07-05] MEDS: PROPRANOLOL HCL 10 MG TABLET (INDERAL) PO SCH ×2 (08:40→21:00)
[2020-07-05] MEDS: CEFEPIME 1 GM in D5W 50 ML IV SCH (08:40)
[2020-07-05] MEDS: CYANOCOBALAMIN 1000 mCg TABLET PO SCH (08:40)
[2020-07-05] MEDS: ISONIAZID 300 MG TABLET PO SCH (08:40)
[2020-07-05] MEDS ORDERED: cloNIDine HCL 0.1 MG TABLET PO PRN (09:00)
[2020-07-05 11:49] VITALS: BP_SYST 123
[2020-07-05 16:45] VITALS: BP_SYST 149
[2020-07-05 19:50] VITALS: BP_SYST 148
[2020-07-05] MEDS: MELATONIN 3 MG TABLET PO SCH (20:38)
[2020-07-05] MEDS: DONEPEZIL HCL 5 MG TABLET (ARICEPT) PO SCH (20:38)
[2020-07-05] MEDS: QUEtiapine FUMARATE 25 MG TABLET PO SCH (20:39)
[2020-07-05] MEDS: ENOXAPARIN SODIUM 40 MG/0.4 ML SYRINGE SUBCUT SCH (20:39)
[2020-07-06 01:19] VITALS: BP_SYST 127
[2020-07-06] MEDS: KCL 20 mEq in D5/0.45NS 1000mL 1,000 ML IV SCH ×2 (05:19→18:35)
[2020-07-06 08:00] VITALS: BP_SYST 120
[2020-07-06 08:31] LABS: BASOPHILS # (AUTO) 0.1 K/uL (0.0-0.2); BASOPHILS % (AUTO) 1.3 % (0.0-2.0); EOSINOPHILS # (AUTO) 0.1 K/uL (0.0-0.4); EOSINOPHILS % (AUTO) 2.8 % (0.0-4.0); HEMATOCRIT 41.6 % (36-48); HEMOGLOBIN 13.5 g/dL (12.0-16.0); LYMPHOCYTES # (AUTO) 1.2 K/uL (1.0-5.5); LYMPHOCYTES % (AUTO) 27.2 % (20.5-51.5); MEAN CORPUSCULAR HEMOGLOBIN 29 pg (27-31); MEAN CORPUSCULAR HGB CONC 32 % (32-36); MEAN CORPUSCULAR VOLUME 90 fL (79.0-98.0); MONOCYTES # (AUTO) 0.3 K/uL (0.0-1.0); MONOCYTES % (AUTO) 7.8 % (1.7-9.3); NEUTROPHILS # (AUTO) 2.6 K/uL (1.8-7.7); NEUTROPHILS % (AUTO) 60.9 % (40.0-70.0); PLATELET COUNT (AUTO) 219 K/uL (130-430); RED BLOOD CELL COUNT(AUTO) 4.64 MIL/uL (4.2-6.2); RED CELL DISTRIBUTION WIDTH 16.9 % (9.0-15.0); WHITE BLOOD COUNT (AUTO) 4.3 K/uL (4.8-10.8)
[2020-07-06 08:42] LABS: ALANINE AMINOTRANSFERASE 34 U/L (12-78); ALBUMIN 2.9 g/dL (3.4-4.8); ANION GAP 9 (5-15); ASPARTATE AMINOTRANSFERASE 73 U/L (10-37); CALCIUM 8.3 mg/dL (8.4-11.0); CHLORIDE 105 mmol/L (98-107); CREATININE 0.91 mg/dL (0.55-1.30); GLUCOSE 91 mg/dL (70-99); POTASSIUM 4.6 mmol/L (3.5-5.1); SODIUM SERUM 139 mmol/L (136-145); TOTAL BILIRUBIN 0.4 mg/dL (0.0-1.0); UREA NITROGEN, BLOOD 18 mg/dL (8-21)
[2020-07-06] MEDS: PROPRANOLOL HCL 10 MG TABLET (INDERAL) PO SCH (09:00)
[2020-07-06 09:17] LABS: C-REACTIVE PROTEIN QUANT 1.2 mg/dL (0-0.5)
[2020-07-06] MEDS: CEFEPIME 1 GM in D5W 50 ML IV SCH (10:14)
[2020-07-06] MEDS: MEMANTINE HCL 5 MG TABLET PO SCH (10:15)
[2020-07-06] MEDS: ISONIAZID 300 MG TABLET PO SCH (10:15)
[2020-07-06] MEDS: lisinopriL 20 MG TABLET PO SCH (10:16)
[2020-07-06] MEDS: ENOXAPARIN SODIUM 40 MG/0.4 ML SYRINGE SUBCUT SCH (10:16)
[2020-07-06] MEDS: CYANOCOBALAMIN 1000 mCg TABLET PO SCH (10:16)
[2020-07-06 12:00] VITALS: BP_SYST 130
[2020-07-06 16:00] VITALS: BP_SYST 140
[2020-07-06 18:27] VITALS: BP_SYST 132
[2020-07-06] MEDS: LORazepam 1 MG TABLET PO PRN (19:02)
== END 2020-07-06 20:08 | disposition hospice, home (50) | DRG 177 ==
LOC: SED 17:40 → SMU 21:06
PROVIDERS: ADMIT Family Medicine; ATTEND Family Medicine
DX: U07.1 COVID-19 (principal); J12.89 Other viral pneumonia; N39.0 Urinary tract infection, site not specified; A08.39 Other viral enteritis; M19.90 Unspecified osteoarthritis, unspecified site; F03.90 Unspecified dementia, unspecified severity, without behavioral disturbance, psychotic disturbance, mood disturbance, and anxiety; I10 Essential (primary) hypertension; F32.9 Major depressive disorder, single episode, unspecified; Z51.5 Encounter for palliative care; Z22.7 Latent tuberculosis
CPT/HCPCS: 36415; 71045; 80048; 80053; 81000-TC; 82728; 83605; 83735-TC; 84100-TC; 84484; 85025; 85379; 85610-TC; 85730-TC; 86140; 87040-TC; 87081; 87086; 93005; 96361; 96365; 96375; 99285; J0456; J0692; J0696; J1100; J1650; J2060; J7050; J7060; U0003